=== PATIENT | female | born 1955 | race Caucasian/White ===

== ENCOUNTER 2017-06-10 10:50 | Emergency (ER) | payer MEDICAID ==
[~2017-06-10] VITALS: Ht 160 cm; Wt 77.1 kg
[2017-06-10 11:50] VITALS: Ht 160 cm; Wt 77.1 kg
[2017-06-10 15:07] VITALS: BP 141/93
== END 2017-06-10 15:07 | disposition home or self-care (01) ==
LOC: ED 10:50
DX: M54.5 Low back pain (principal)
CPT/HCPCS: J1885

== ENCOUNTER 2017-12-21 10:29 | Emergency (ER) | payer OTHER ==
[2017-12-21 10:39] VITALS: Ht 165.1 cm
[2017-12-21 13:52] VITALS: BP 133/82
== END 2017-12-21 13:52 | disposition home or self-care (01) ==
LOC: ED 10:29
DX: M54.40 Lumbago with sciatica, unspecified side (principal); M25.561 Pain in right knee
CPT/HCPCS: J1885